=== PATIENT | female | born 1950 | race Two or more races ===

== ENCOUNTER 2022-05-05 16:19 | Emergency (ER) | payer OTHER, SELFPAY ==
--- NOTE | ~2022-05-05 | XR_ITS ---
EXAMINATION: XR CHEST CLINICAL INFORMATION: Wheezing COMPARISON: None TECHNIQUE: Frontal view of the chest was obtained. FINDINGS: Mild dependent atelectasis. Lung volumes are borderline low. No consolidation. Mild bronchial wall thickening in the perihilar regions. No pneumothorax or pleural effusion. Sternal wires and surgical clips overlie the chest. Cardiac silhouette is within normal limits in size. Pulmonary vasculature is normal. Bones are osteopenic. No acute osseous findings. Degenerative spondylosis is present in the thoracic spine. XR/XR chest 1V IMPRESSION: Bronchial wall thickening can be seen with a small airways process such as asthma or atypical/viral infection. Mild dependent atelectasis.
--- NOTE | ~2022-05-05 | US_ITS ---
EXAMINATION: US VENOUS ULTRASOUND WITH DOPPLER LOWER EXTREMITY, BILATERAL CLINICAL INFORMATION: Swelling COMPARISON: None TECHNIQUE: Ultrasound of the deep veins is performed from the hip to the calf with compression sonography and color and pulse Doppler assessment. Spectral analysis with color-flow imaging is performed. FINDINGS: RIGHT: There is normal venous compression and respiratory variation and augmented flow. The visualized common femoral vein, superficial femoral vein, profunda femoral vein, popliteal vein, and the trifurcation region shows no evidence of deep venous thrombosis. There is no significant popliteal fossa cyst. LEFT: There is normal venous compression and respiratory variation and augmented flow. The visualized common femoral vein, superficial femoral vein, profunda femoral vein, popliteal vein, and the trifurcation region shows no evidence of deep venous thrombosis. There is no significant popliteal fossa cyst. If the patient's symptoms persist, followup ultrasound in 5 days 7 days might be of value to exclude proximal propagation from a non-visualized calf vein. US/US venous duplex LE BI IMPRESSION: No DVT demonstrated in the bilateral lower extremity.
[2022-05-05 16:28] VITALS: BP 134/91; PULSE 87; RESP 18; TEMP 36.7; O2SAT 99; BMI 24.5
--- NOTE | 2022-05-05 17:55 | ED.GENADULT ---
HPI - General Adult General Chief complaint: General Medical Stated complaint: Back pain, Bi lat leg pain per EMS Time Seen by Provider: 05/05/22 17:55 Source: patient Mode of arrival: ambulatory Limitations: language barrier History of Present Illness HPI narrative: 72-year-old female presents via EMS for chronic back pain, swelling to the lower legs left greater than the right with a history of DVTs, and cough. Onset (ago): day(s) Location: chest, back, left, right and lower extremity Radiation: non-radiation Severity: mild Pain Consistency: constant Relieving factors: none Associated symptoms: cough Treatments prior to arrival: none Related Data Previous Rx's Medication Instructions Recorded azithromycin 250 mg tablet 250 mg PO DAILY 4 days #4 tabs 05/06/22 Allergies Allergy/AdvReac Type Severity Reaction Status Date / Time No Known Allergies Allergy Verified 05/05/22 18:00 Review of Systems Review of Systems: Constitutional: No Fever, No Chills Cardiovascular: No Chest Pain, No SOB, positive lower extremity edema Respiratory: Positive Cough, No Dyspnea Gastrointestinal: No Nausea, No Vomiting, No Diarrhea, No abdominal Pain Genitourinary: No Dysuria, No Hematuria Musculoskeletal: positive chronic lower back pain pain, No Myalgias, No Joint Swelling Skin: No Skin lacerations, No rash Neuro: No Weakness, No Numbness, No Paresthesias, No Dizziness, No Headache Yes all other systems are reviewed and are negative [facility] Past Medical History Attestation statement: The following information was validated with the patient. Source: old records reviewed Social History Social History Smoked in Last 30 Days: No Use of substances other than those prescribed or required for medical reasons: No Advance Directives: No Advance Directives Information Provided: No Physical Exam ED Vital Signs: Vital Signs - 24 hr 05/05/22 16:28 05/05/22 19:10 05/05/22 19:21 Temperature 98.1 F 98.0 F Pulse Rate 87 78 77 Respiratory Rate 18 16 16 Blood Pressure 134/91 H 109/47 L 127/58 L Pulse Oximetry 99 100 Oxygen Delivery Method Room Air Room Air Room Air 05/05/22 21:29 05/05/22 22:18 05/06/22 00:57 Temperature 97.8 F 98.1 F Pulse Rate 73 77 77 Respiratory Rate 18 16 16 Blood Pressure 136/57 L 127/53 L 141/68 H Pulse Oximetry 98 96 Oxygen Delivery Method Room Air Room Air 05/06/22 01:11 Temperature Pulse Rate 78 Respiratory Rate 16 Blood Pressure 141/68 H Pulse Oximetry Oxygen Delivery Method BMI result Body Mass Index 24.5 Appearance: Alert. Oriented X3. No acute distress. Eyes: Pupils equal, round and reactive to light. ENT: Pharynx normal. Neck: Normal inspection. Neck supple. CVS: Normal heart rate and rhythm. Pulses normal. Respiratory: No respiratory distress. Lung sounds clear to auscultation all lobes. Abdomen: Soft and nontender. Skin: Skin warm and dry. Normal skin color. Normal skin turgor. Extremities: Positive bilateral lower extremity edema. Moves all extremities against resistance. Gait well balanced well coordinated. Neuro: No motor deficit. No sensory deficit. Cranial nerves 2-12 intact. Course Course Course Narrative: 72-year-old female presents for multiple concerns including chronic back pain, bilateral lower extremity edema with history DVT, and a cough. Patient was on hospice for dementia and failure to thrive however patient's symptoms improved and she is no longer a hospice patient. Patient has not had lab values drawn in several years due to the hospice placement. Patient does have a history of anemia, dementia, kidney failure, hypertension, hyperlipidemia, diabetes. Will order labs, x-ray, duplex, rule out ACS. Patient's BUN is elevated at 23, will order 1 L of fluids. H&H indicates anemia 8.7/26.1 which is consistent with patient's history however do not have prior values. At this time patient is asymptomatic, I do not feel transfusion is appropriate at this time. I did discuss this with the family who agrees with this plan. COVID influenza RSV are negative. It is taken multiple attempts for RN to obtain IV, patient requires L fluid prior to discharge. Urinalysis is negative. Chest x-rays indicate bronchitis, will treat with azithromycin. DVT studies are negative. Plan of care is to discharge home. Patient's family verbalized understanding of and agrees to plan of care discharge. Verbalized understanding of signs symptoms indicating need for emergent intervention. Medications Administered Discontinued Medications Generic Name Dose Route Start Last Admin Trade Name Freq PRN Reason Stop Dose Admin Azithromycin 500 mg 05/06/22 01:00 05/06/22 01:09 Azithromycin 500 Mg Tablet PO 05/06/22 01:01 500 mg ONCE ONE Administration Sodium Chloride 1,000 mls @ 999 mls/hr 05/05/22 21:45 05/06/22 00:59 Ns IVCONT 05/05/22 22:45 Infused .Q1H1M DONALD Infusion Medical Decision Making Differential Diagnosis Differential Diagnoses: The differential diagnosis associated with the presentation includes URI, COVID, influenza, RSV, pneumonia Lab Data MDM Lab Attestation statement: I reviewed the patient's lab results. 05/05/22 20:15 05/05/22 20:15 Labs: Lab Results 05/05/22 05/05/22 05/05/22 Range/Units 20:15 20:15 20:15 WBC 4.0 L (4.8-10.8) X10*3/uL RBC 3.12 L (4.20-5.50) X10*6/uL Hgb 8.7 L (12.0-16.0) g/dl Hct 26.1 L (37.0-47.0) % MCV 83.7 (80.0-98.0) fL MCH 27.9 (27.0-33.0) pg MCHC 33.3 (31.0-35.0) g/dl RDW 12.7 (11.0-16.0) % Plt Count 436 H (160-400) X10*3/uL MPV 9.2 L (9.4-12.3) fL Immature Gran % (Auto) 0.3 (0.0-0.4) % Neut % (Auto) 33.0 L (45-73) % Lymph % (Auto) 55.4 H (20-40) % [place] % (Auto) 7.8 (2-11) % Eos % (Auto) 2.5 (0-4) % Baso % (Auto) 1.0 (0-2) % Lymph # (Auto) 2.2 (1.2-4.9) X10*3/uL [place] # (Auto) 0.3 (0.1-1.2) X10*3/uL Eos # (Auto) 0.1 (0.0-0.4) X10*3/uL Baso # (Auto) 0.0 (0.0-0.2) X10*3/uL Abs Immat Gran (auto) 0.01 (0.00-0.03) X10*3/uL Absolute Neuts (auto) 1.3 L (2.0-8.3) x10*3/uL Absolute Nucleated RBC 0.000 (0.0-0.012) X10*3/uL Nucleated RBC % (auto) 0.0 (0.0-0.2) /100WBC Sodium 138 (135-145) mmol/L Potassium 3.6 (3.3-5.1) mmol/L Chloride 104 (96-108) mmol/L Carbon Dioxide 24 (22-29) mmol/L Anion Gap 14 (12-20) BUN 23 H (9-16) mg/dL Creatinine 1.13 (0.5-1.4) mg/dL Estim Creat Clear Calc 40.0 Estimated GFR 48 Random Glucose 163 H (60-115) mg/dL Calcium 9.3 (8.4-10.2) mg/dL Magnesium 1.6 (1.6-2.6) mg/dL Troponin I High Sens 5.8 (<3.5-17.0) ng/L B-Natriuretic Peptide (<100) pg/mL Urine Color Urine Appearance Urine pH (5.0-9.0) Ur Specific [place] (1.005-1.025) Urine Protein (Neg-Trace) mg/dL Urine Glucose (UA) (Negative) mg/dL Urine Ketones (Negative) mg/dL Urine Blood (Negative) Urine Nitrite (Negative) Ur Leukocyte Esterase (Negative) Influenza Type A (PCR) (Negative) Influenza Type B (PCR) (Negative) RSV RNA Qual (PCR) (Negative) SARS-CoV-2 RNA (RT-PCR) (Negative) 05/05/22 05/05/22 05/05/22 Range/Units 20:15 20:15 21:52 WBC (4.8-10.8) X10*3/uL RBC (4.20-5.50) X10*6/uL Hgb (12.0-16.0) g/dl Hct (37.0-47.0) % MCV (80.0-98.0) fL MCH (27.0-33.0) pg MCHC (31.0-35.0) g/dl RDW (11.0-16.0) % Plt Count (160-400) X10*3/uL MPV (9.4-12.3) fL Immature Gran % (Auto) (0.0-0.4) % Neut % (Auto) (45-73) % Lymph % (Auto) (20-40) % [place] % (Auto) (2-11) % Eos % (Auto) (0-4) % Baso % (Auto) (0-2) % Lymph # (Auto) (1.2-4.9) X10*3/uL [place] # (Auto) (0.1-1.2) X10*3/uL Eos # (Auto) (0.0-0.4) X10*3/uL Baso # (Auto) (0.0-0.2) X10*3/uL Abs Immat Gran (auto) (0.00-0.03) X10*3/uL Absolute Neuts (auto) (2.0-8.3) x10*3/uL Absolute Nucleated RBC (0.0-0.012) X10*3/uL Nucleated RBC % (auto) (0.0-0.2) /100WBC Sodium (135-145) mmol/L Potassium (3.3-5.1) mmol/L Chloride (96-108) mmol/L Carbon Dioxide (22-29) mmol/L Anion Gap (12-20) BUN (9-16) mg/dL Creatinine (0.5-1.4) mg/dL Estim Creat Clear Calc Estimated GFR Random Glucose (60-115) mg/dL Calcium (8.4-10.2) mg/dL Magnesium (1.6-2.6) mg/dL Troponin I High Sens (<3.5-17.0) ng/L B-Natriuretic Peptide 77 (<100) pg/mL Urine Color Yellow Urine Appearance Clear Urine pH 6.5 (5.0-9.0) Ur Specific [place] 1.015 (1.005-1.025) Urine Protein Negative (Neg-Trace) mg/dL Urine Glucose (UA) Negative (Negative) mg/dL Urine Ketones Negative (Negative) mg/dL Urine Blood Negative (Negative) Urine Nitrite Negative (Negative) Ur Leukocyte Esterase Negative (Negative) Influenza Type A (PCR) NEGATIVE (Negative) Influenza Type B (PCR) NEGATIVE (Negative) RSV RNA Qual (PCR) NEGATIVE (Negative) SARS-CoV-2 RNA (RT-PCR) NEGATIVE (Negative) Independent Interpretation I performed an independent interpretation of an: EKG, Plain X-Ray and Ultrasound Interpretation: Vent. rate 76 BPM CA interval 122 ms QRS duration 100 ms QT/QTc 430/483 ms P-R-T axes 49 -25 68 Normal sinus rhythm Nonspecific ST abnormality Abnormal ECG No previous ECGs available 05-MAY-2022 19:58:44 Radiology Impression Discussion of test interpretation with radiology: I have reviewed the radiologist's reading. Radiologist Impression: EXAMINATION: XR CHEST CLINICAL INFORMATION: Wheezing COMPARISON: None TECHNIQUE: Frontal view of the chest was obtained. FINDINGS: Mild dependent atelectasis. Lung volumes are borderline low. No consolidation. Mild bronchial wall thickening in the perihilar regions. No pneumothorax or pleural effusion. Sternal wires and surgical clips overlie the chest. Cardiac silhouette is within normal limits in size. Pulmonary vasculature is normal. Bones are osteopenic. No acute osseous findings. Degenerative spondylosis is present in the thoracic spine. XR/XR chest 1V IMPRESSION: Bronchial wall thickening can be seen with a small airways process such as asthma or atypical/viral infection. Mild dependent atelectasis. ? EXAMINATION:? US VENOUS ULTRASOUND WITH DOPPLER LOWER EXTREMITY, BILATERAL CLINICAL INFORMATION:? Swelling COMPARISON:? None TECHNIQUE: Ultrasound of the deep veins is performed from the hip to the calf with compression sonography and color and pulse Doppler assessment. Spectral analysis with color-flow imaging is performed. FINDINGS: RIGHT: There is normal venous compression and respiratory variation and augmented flow. The visualized common femoral vein, superficial femoral vein, profunda femoral vein, popliteal vein, and the trifurcation region shows no evidence of deep venous thrombosis. ? There is no significant popliteal fossa cyst. LEFT: There is normal venous compression and respiratory variation and augmented flow. The visualized common femoral vein, superficial femoral vein, profunda femoral vein, popliteal vein, and the trifurcation region shows no evidence of deep venous thrombosis. ? There is no significant popliteal fossa cyst. If the patient's symptoms persist, followup ultrasound in 5 days 7 days might be of value to exclude proximal propagation from a non-visualized calf vein. US/US venous duplex LE BI IMPRESSION: No DVT demonstrated in the bilateral lower extremity. Independent Historian Clinical information obtained from an independent historian. History obtained from or confirmed by: Other (Children) External Record Review External record reviewed: Outpatient record Prescription Management I considered prescription management with: Antibiotic Chronic Conditions Patient?s care impacted by: Diabetes and Hypertension Discharge Plan Discharge Clinical Impression: Bronchitis, Dehydration Patient Disposition: Home, Self-Care Instructions: Dehydration (ED), Acute Bronchitis (ED) Additional Instructions: Fuiste evaluado por m?ltiples inquietudes. Para yee edema de las extremidades inferiores, yee estudio de TVP fue negativo. Yee radiograf?a de t?rax indica bronquitis. [place] azitromicina 250 mg al d?a miranda los pr?ximos 4 d?as. Comenz? josseline medicamento el 11/28/2022, le dimos la primera dosis en el departamento de emergencias el 10/28/2022. Le tratamos por deshidrataci?n con 1 L de l?quidos. Por favor, daniel m?s l?quidos. Favian por elegir josseline departamento de emergencias para yee evaluaci?n. Por favor, alexa un seguimiento con el m?dico de atenci?n primaria seg?n sea necesario. Regrese al departamento de emergencias por cualquier s?ntoma nuevo, preocupante o que empeore. You were evaluated for multiple concerns. For your lower extremity edema, your DVT study was negative. Your chest x-ray indicates bronchitis. Please take azithromycin 250 mg daily for the next 4 days. Start this medication on 05/07/2022, we gave her 1st dose in the emergency department on 05/06/2022. We treated you for dehydration with 1 L of fluids. Please drink more fluids. Thank you for choosing this emergency department for evaluation. Please follow-up with primary care physician as needed. Return to the emergency department for any new, concerning, or worsening symptoms. Prescriptions: New azithromycin 250 mg tablet 250 mg PO DAILY 4 Days Qty: 4 0RF Rx Instructions: start on day 2 of therapy Interventions: ED Discharge Assessment Last Done: 05/06/22 01:46
--- NOTE | 2022-05-05 18:46 | PC.NURSE ---
pt resting comfortably in bed, MD at bedside with motor vehicle [employer] interpreter services. awaiting final recs
[2022-05-05 19:10] VITALS: BP 109/47; PULSE 78; RESP 16; O2SAT 100
[2022-05-05 19:21] VITALS: BP 127/58; PULSE 77; RESP 16; TEMP 36.7
--- NOTE | 2022-05-05 19:52 | ECG_ITS ---
Test Reason : GENERAL MEDICAL Blood Pressure : / mmHG Vent. Rate : 076 BPM Atrial Rate : 076 BPM P-R Int : 122 ms QRS Dur : 100 ms QT Int : 430 ms P-R-T Axes : 049 -25 068 degrees QTc Int : 483 ms Normal sinus rhythm Nonspecific ST abnormality Borderline ECG No previous ECGs available Referred By: Maria Del Rosario Sterling Electronically Signed By:FARIDA PERRY
--- NOTE | 2022-05-05 20:07 | PC.NURSE ---
ultra sound at bedside being done at this time and labs are also being drawn.
[2022-05-05 20:21] LABS: MANUAL DIFF FLAG NO
[2022-05-05 20:27] LABS: Eosinophils Absolute Auto 0.1 X10*3/uL (0.0-0.4); Eosinophils Percent Auto 2.5 % (0-4); Hematocrit 26.1 % (37.0-47.0); Hemoglobin 8.7 g/dl (12.0-16.0); Imm Gran Abs Auto 0.01 X10*3/uL (0.00-0.03); Imm Gran Pct Auto 0.3 % (0.0-0.4); Lymphocytes Absolute Auto 2.2 X10*3/uL (1.2-4.9); Lymphocytes Percent Auto 55.4 % (20-40); Mean Corpuscular HGB Conc 33.3 g/dl (31.0-35.0); Mean Corpuscular Hemoglobin 27.9 pg (27.0-33.0); Mean Corpuscular Volume 83.7 fL (80.0-98.0); Mean Platelet Volume 9.2 fL (9.4-12.3); Monocytes Absolute Auto 0.3 X10*3/uL (0.1-1.2); Monocytes Percent Auto 7.8 % (2-11); Neutrophils Absolute Auto 1.3 x10*3/uL (2.0-8.3); Platelet Count 436 X10*3/uL (160-400); Red Blood Count 3.12 X10*6/uL (4.20-5.50); Red Cell Distribution Width 12.7 % (11.0-16.0)
[2022-05-05 20:48] LABS: Anion Gap 14 (12-20); Blood Urea Nitrogen 23 mg/dL (9-16); Calcium 9.3 mg/dL (8.4-10.2); Carbon Dioxide 24 mmol/L (22-29); Chloride 104 mmol/L (96-108); Estimated Glomerular Filt Rate 48; Glucose Random 163 mg/dL (60-115); Magnesium 1.6 mg/dL (1.6-2.6); Potassium 3.6 mmol/L (3.3-5.1); Sodium 138 mmol/L (135-145)
[2022-05-05 20:51] LABS: B Type Natriuretic Peptide 77 pg/mL (<100)
[2022-05-05 20:54] LABS: Troponin-I High Sensitivity 5.8 ng/L (<3.5-17.0)
[2022-05-05 21:03] LABS: Influenza A PCR NEGATIVE (Negative); Influenza B PCR NEGATIVE (Negative); Resp Syncy Virus RNA Qual PCR NEGATIVE (Negative); SARS COV2 PCR INHOUSE NEGATIVE (Negative)
[2022-05-05 21:29] VITALS: BP 136/57; PULSE 73; RESP 18; TEMP 36.6; O2SAT 98
[2022-05-05 22:03] LABS: Appearance Urine Clear; Color Urine Yellow; Glucose Urine UA Negative (Negative); Leukocyte Esterase Urine Negative (Negative); Nitrite Urine Negative (Negative); PH 6.5 (5.0-9.0); Specific Gravity - Urine 1.015 (1.005-1.025); Urine Blood Negative (Negative); Urine Ketones Negative (Negative); Urine Protein Negative (Neg-Trace)
[2022-05-05 22:18] VITALS: BP 127/53; PULSE 77; RESP 16
[2022-05-05] MEDS: 0.9 % Sodium Chloride 1,000 ML 999 ML IVCONT (23:12)
--- NOTE | 2022-05-06 00:12 | PC.NURSE ---
Patient is alert and oriented. Stated she has no pain. 22GA was inserted to Left Hand with no problem. Vitals are stable, no signs of resp distress. Patient is resting peacefully, daughter by a bed side. Safety maintained.
[2022-05-06 00:57] VITALS: BP 141/68; PULSE 77; RESP 16; TEMP 36.7; O2SAT 96
[2022-05-06] MEDS: Azithromycin 500 MG TABLET PO (01:09)
[2022-05-06 01:11] VITALS: BP 141/68; PULSE 78; RESP 16
--- NOTE | 2022-05-06 01:45 | PC.NURSE ---
Patient is alert and oriented to base line. Denies to be in pain. Vitals are stable. No signs of resp distress. Stable gate. Patient skin is moist and pink
== END 2022-05-06 01:45 | disposition home or self-care (01) ==
PROVIDERS: Nurse Practitioner Family; Emergency Provider Emergency Medicine; PCP Internal Medicine
DX: J40 Bronchitis, not specified as acute or chronic (principal); E86.0 Dehydration; M54.50 Low back pain, unspecified; R06.02 Shortness of breath; R05.9 Cough, unspecified; Z20.828 Contact with and (suspected) exposure to other viral communicable diseases; Z20.822 Contact with and (suspected) exposure to COVID-19; Z79.899 Other long term (current) drug therapy
CPT/HCPCS: 0241U; 36415; 71045; 80048; 81003; 83735; 83880; 84484; 85025; 93005; 93970; 96360; 96361; 99284; 99285